=== PATIENT | male | born 1945 | race Caucasian/White ===

== ENCOUNTER → 2019-05-10 09:11 | Outpatient (CLI) | payer MEDICARE ==
--- NOTE | 2019-05-13 15:06 | EC ---
PATIENT:SANA KAYE DATE OF SERVICE: 05/10/19 SEX: M MEDICAL RECORD: [id number] DATE OF : 47 LOCATION:D.[facility] AGE OF PATIENT: 73 ADMISSION DATE: 05/10/19 REFERRING PHYSICIAN: INTERPRETING PHYSICIAN: RENE DAVID MD ECHOCARDIOGRAM REPORT ECHO CHARGES 4 ECHO COMPLETE Date: 05/10/19 CLINICAL DIAGNOSIS: CAD/ASSESS EF AND VALVES ECHOCARDIOGRAPHIC MEASUREMENTS (adult normal given) AC root (d.<3.7cm) 3.1 cm LV Septum d (<1.2 cm> 1.4 cm Valve Excursion 1.5 cm LV Septum (systole) 1.8 cm Left Atria (s.<4.0cm> 4.3 cm LVPW d(<1.2cm) 1.7 cm RV (d.<2.3cm) 4.5 cm LVPW (sytole) 1.8 cm LV diastole(<5.6CM) 5.3 cm MV E-F(>70mm/sec) cm LV systole 3.2 cm LVOT Diameter 2.0 cm MV exc.(>10mm) 2.3 cm Est.ejection fraction (50-75%) % DOPPLER: LVIT cm/sec A 64.0 cm/sec E 61.0 cm/sec LA cm/sec RVSP 33 mmHg LVOT 148 cm/sec AOP1/2T m/s Asc. Ao 162 cm/sec RVOT 68 cm/sec RA cm/sec PA 105 cm/sec AV Gradient Peak 10.52mmHg AV Mean 5.97 mmHg AV Area 2.8 cm MV Gradient Peak 2.48 mmHg MV Mean 0.82 mmHg MV Area cm COMMENTS: Tank Pumper Panelboard: 2 DANIA BRITTON Review Trainer: 3 Dr. Lang TAPE# PACS Pericardial Effusion N DATE OF SERVICE: Adequate 2D, color flow, spectral Doppler, and M-Mode. LVH is present. LV internal dimensions are normal. Wall motion is normal. EF is greater than or equal to 55%. Aortic valve is tricuspid. No evidence of stenosis on Doppler interrogation. Left atrium is mildly dilated at 4.3 cm. Mitral valve shows no prolapse. Trace MR. Right-sided chambers are grossly normal. Trace TR. TRANSINT:[id number] Voice Confirmation ID: [id number] DOCUMENT ID: [id number] ECHOCARDIOGRAM REPORT [id number] SANA KAYE,RENE Woodard MD at 1506 CC: [id number] DICTATION DATE: 05/10/19 1155 MARSH BUGGY OPERATOR: 05/10/19 1233 DEP CLI 05/10/19 [place] [id number] [place] [id number]
== END | disposition home or self-care (01) ==
LOC: D.HCCARDIO 09:11
PROVIDERS: ATTEND Internal Medicine Interventional Cardiology
DX: I25.10 Atherosclerotic heart disease of native coronary artery without angina pectoris (principal)

== ENCOUNTER → 2020-02-13 08:50 | Outpatient (CLI) | payer MEDICARE | END | disposition home or self-care (01) | LOC: D.HCCARDIO 08:50 → D.HCCECHO 10:30 | PROVIDERS: ATTEND Internal Medicine Cardiovascular Disease | DX: I25.119 Atherosclerotic heart disease of native coronary artery with unspecified angina pectoris (principal) ==

== ENCOUNTER → 2020-02-24 10:47 | Outpatient (CLI) | payer MEDICARE ==
[~2020-02-24] VITALS: Ht 177.8 cm; Wt 92.3 kg
--- NOTE | ~2020-02-24 | HEMODYNAMI ---
PATIENT:SANA KAYE MEDICAL RECORD: [id number] : 47 LOCATION:[facility] ADMISSION DATE: 02/24/20 Generatedon:02/24/202013:36 Patient name: SANA KAYE Patient #: [id number] SSN: [id number] : 1945 Date of study: 02/24/2020 Page: Of Hemodynamic Procedure Report Patient Data Patient Demographics Procedure consent was obtained First Name: SANA Gender: Male Last Name: VARGAS : 1945 [facility] Initial: K Age: 74 year(s) Patient #: [id number] Race: Unknown SSN: [id number] Additional ID: [id number] Contact details [address]: [address] [place] [address] State: [place] City: [place] Zip code: [address] Past Medical History Allergies: No known allergies Admission Admission Data Admission Date: 02/24/2020 Admission Time: 10:47 Lab Results Lab Result Date: 02/24/2020 Lab Result Time: 0:00 Biochemistry Name Units Result Min Max BUN mg/dl 21 --(----)-* 7 18 Creatinine mg/dl 1.2 --(---*)-- 0.6 1.3 eGFR ml/min 63 *-(----)-- 90 120 NONAFRICAN CBC Name Units Result Min Max Hematocrit % 48.1 --(--*-)-- 42 54 Hemoglobin g/dl 15.6 --(--*-)-- 13.5 17.5 Procedure Procedure Types Cath Procedure Diagnostic Procedure LHC LH w/Coronaries Sedation Charges Moderate Sedation up to 30 minutes PCI Procedure Coronary Stent Coronary Stent Initial PTCA PTCA Additional Hemochron ACT Test Procedure Description Procedure Date Procedure Date: 02/24/2020 Procedure Start Time: 13:10 Procedure End Time: 13:34 Procedure Staff Name Function Dudley Child MD Performing Physician Marylin Mcintyre RT Monitor Keli Delaney RT Scrub Nataly Sami RN Nurse Procedure Data Cath Procedure Fluoroscopy Diagnostic fluoroscopy Total fluoroscopy Time: 5 time: 5 min min Diagnostic fluoroscopy Total fluoroscopy dose: dose: 1592 mGy 1592 mGy Contrast Material Contrast Material Type Amount (ml) Isovue 300 105 Entry Location Entry Primary Successful Side Size Upsize Upsize Entry Closure Succes sful Closure Location (Fr) 1 (Fr) 2 (Fr) Remarks Device Remarks Femoral Right 5 Fr 6 Fr Exoseal artery Short Estimated blood loss: 10 ml Diagnostic catheters Device Type Used For End Catheter Placement MULTIPACK JL 4.0 5Fr Procedure catheter MULTIPACK 3DRC 5Fr Procedure catheter MULTIPACK Pigtail 5 Fr Ventriculography catheter Procedure Complications No complications Procedure Medications Medication Administration Route Dosage 0.9% NaCl I.V. 100 ml/hr Oxygen etCO2 Nasal cannula 2 l/min Lidocaine 2% added to field 20 Heparin Flush Bag added to field 2 bags (1000units/500ml NS) Versed I.V. 2 mg Fentanyl I.V. 50 mcg Fentanyl I.V. 50 mcg Heparin Bolus I.V. 5000 units Integrilin (Bolus I.V. 8.5 ml 2mg/ml) Integrilin (Bolus wasted 1.5 ml 2mg/ml) Plavix P.O. 600 mg Hemodynamics Rest HGB: 15.6 (g/dl) Heart Rate: 137 (bpm) Pressure Samples Time Site Value (mmHg) Purpose Heart Use Rate(bpm) 13:16 LV 96/8,10 Snapshot 62 13:16 AO 87/46(71) Pullback 64 Gradients Valve Time Site Site 2 Mean SEP/DFP Peak To Heart Use 1 (mmHg) (sec/min) Peak Rate (mmHg) (bpm) Aortic 13:16 LV AO 0 8 64 87/46(71) Calculations Valve P-P Mean Valve Index Valve Source Name Gradient Area Flow (cm2) Aortic 0 0 Snapshots Pre Cath Intra NCS Post Cath Vital Signs Time Heart Resp SPO2 etCO2 NIBP (mmHg) Rhythm Pain Sedation Rate (ipm) (%) (mmHg) Status Level (bpm) 12:56:47 59 12 97 31 130/70(100) NSR 0 (11) 10(A) , No pain 13:00:52 63 15 96 30.8 142/80(110) NSR 0 (11) 10(A) , No pain 13:05:06 54 18 97 33.8 127/71(102) SB 0 (11) 10(A) , No pain 13:09:18 44 16 98 36 108/58(85) SB 0 (11) 10(A) , No pain 13:13:24 44 16 97 37.6 113/55(87) SB 0 (11) 10(A) , No pain 13:17:30 45 15 97 36.8 112/66(89) SB 0 (11) 10(A) , No pain 13:21:35 61 23 96 36 118/59(94) SB 0 (11) 10(A) , No pain 13:25:43 56 23 97 34.5 134/64(101) SB 0 (11) 10(A) , No pain 13:29:55 57 17 96 34.5 136/70(106) SB 0 (11) 10(A) , No pain 13:34:05 69 13 97 33 131/75(107) SB 0 (11) 10(A) , No pain Medications Time Medication Route Dose Verified Delivered Reason Notes Effectiveness by by 12:59:31 0.9% NaCl I.V. 100 Dudley Nataly used for ml/hr [facility] Jonnie Gallardo procedure MD MADRID 12:59:38 Oxygen etCO2 2 Dudley Nataly used for Nasal l/min MateuszJonnie Gallardo procedure cannula MD MADRID 12:59:44 Lidocaine 2% added 20ml Dudley Sparrowory for local to vial [facility] anesthetic field MD CASTRO 12:59:48 Heparin Flush added 2 Dudley Dudley used for Bag to bags [facility] procedure (1000units/500ml field MD CASTRO NS) 13:02:07 Versed I.V. 2 mg Dudley Nataly for sedation [facility] Jonnie Gallardo MD, RN 13:02:12 Fentanyl I.V. 50 Dudley Nataly for sedation mcg [facility] Jonnie Gallardo MD RN 13:08:48 Fentanyl I.V. 50 Dudley Nataly for sedation mcg [facility] Jonnie Gallardo MD, RN 13:19:12 Heparin Bolus I.V. 5000 Dudley Nataly for verif ied units [place] Sami anticoagulation with Dr. CASTRO RN [place] 13:20:30 Integrilin I.V. 8.5 Dudley Nataly for (Bolus 2mg/ml) ml St Jonnie miles MD RN therapy 13:20:42 Integrilin wasted 1.5 Dudley Nataly for (Bolus 2mg/ml) ml [facility] Jonnie Gallardo antiplatelet RN therapy 13:20:48 Plavix P.O. 600 Dudley Inrgam for mg [facility] Jonnie Gallardo antiplatelet RN therapy Procedure Log Time Note 12:38:27 Informed consent obtained and on chart 12:39:06 Procedure Status Elective Heart Cath (OP). 12:39:07 Time tracking: Regular hours (M-F 7:00 - 5:00) 12:39:11 Plan of Care:Hemodynamics will remain stable., Cardiac rhythm will remain stable., Comfort level will be maintained., Respiratory function will remain adequate., Patient/ family verbilizes understanding of procedure., Procedure tolerated without complication., Recovers from procedure without complications.. 12:39:52 H&P Date Dictated: 02/07/2020 Within 30 days and on chart., H&P Addendum completed by physician on day of procedure. (MUST COMPLETE FOR ALL OUTPATIENTS). 12:40:00 Patient allergic to No known allergies 12:41:48 Lab Result : BUN 21 mg/dl 12:41:48 Lab Result : Creatinine 1.2 mg/dl 12:41:48 Lab Result : eGFR NONAFRICAN 63 ml/min 12:41:48 Lab Result : Hemoglobin 15.6 g/dl 12:41:48 Lab Result : Hematocrit 48.1 % 12:44:48 Marylin KANG(Nicholas) sent for patient. Start room use. 12:50:37 Patient received from Pre/Post Procedure Room to CCL 2 Alert and oriented. Tansferred to table in Supine position. 12:55:30 Warm blankets applied, and faith hugger turned on for patient comfort. 12:55:31 Correct patient and procedure confirmed by team. 12:55:31 ECG and BP/O2 sat monitors applied to patient. 12:55:32 Vital chart was started 12:55:33 Baseline sample Acquired. 12:55:36 Rhythm: sinus rhythm 12:55:38 Full Disclosure recording started 12:55:50 Pre-procedure instructions explained to patient. 12:55:53 Family unavailable. 12:55:56 Patient NPO since Midnight. 12:55:59 Is the patient allergic to Iodine/contrast media? No. 12:56:01 Was the patient premedicated? Yes 12:56:02 Is patient on blood thinner?No 12:56:03 Patient diabetic? Yes. 12:56:05 If diabetic: On Metformin? Yes 12:56:07 If on Metformin: Last Dose? 02/23/2020 12:56:13 Snore? Unknown 12:56:14 Sleep apnea? No 12:56:22 Patient pain scale 0/10 ?. 12:56:29 IV patent on arrival in left forearm with 0.9% NaCl at [facility]. 12:56:36 Lab results completed and on chart. 12:59:31 0.9% NaCl 100 ml/hr I.V. was administered by Nataly Gallardo RN; used for procedure; Verbal order read back and verified. 12:59:38 Oxygen 2 l/min etCO2 Nasal cannula was administered by Nataly Gallardo RN; used for procedure; Verbal order read back and verified. 12:59:44 Lidocaine 2% 20ml vial added to field was administered by Dudley Child MD; for local anesthetic; Verbal order read back and verified. 12:59:48 Heparin Flush Bag (1000units/500ml NS) 2 bags added to field was administered by Dudley Child MD; used for procedure; Verbal order read back and verified. 13:01:13 Right groin area was prepped with chlora-prep and draped in sterile fashion 13:01:14 Alarms reviewed by R. N. 13:01:14 Sharps counted by scrub and verified by R.N. 13:01:16 Physician arrived 13:01:17 --------ALL STOP TIME OUT------ 13:01:45 Final Timeout: patient, procedure, and site verified with staff and physician. All members of the team are in agreement. 13:01:47 Right groin site verified by team. 13:01:51 Fire Safety Assessment: A--An alcohol-based skin anteseptic being used preoperatively., C--Open oxygen or nitrous oxide is being used., D--An ESU, laser, or fiber-optic light is being used. 13:01:55 Physical assessment completed. ASA score P 3 - A patient with severe systemic disease as per Dudley Child MD. 13:02:04 2) 60-89 Mildly reduced kidney function, and other findings (as for stage 1) point to kidney disease. 13:02:07 Versed 2 mg I.V. was administered by Nataly Gallardo RN; for sedation; Verbal order read back and verified. 13:02:12 Fentanyl 50 mcg I.V. was administered by Nataly Gallardo RN; for sedation; Verbal order read back and verified. 13:02:51 Maximum allowable contrast dose (3.7 X eGFR X 0.75)175 ml. 13:02:55 Sedation plan: IV Moderate Sedation Medication:Versed, Fentanyl 13:03:06 Baseline sample Acquired. 13:04:35 Use device set Femoral Dx 13:04:36 ACIST Syringe (17037) opened to sterile field. 13:04:36 Bag Decanter (2002S) opened to sterile field. 13:04:37 Medline Cath Pack ([id number]) opened to sterile field. 13:04:38 ACIST Hand Control (69343) opened to sterile field. 13:04:39 ACIST Manifold (03687) opened to sterile field. 13:04:40 DIAGNOSTIC Multipack 5Fr catheter set (AH6074) opened to sterile field. 13:04:40 Tegaderm 4 x 4 (1626W) opened to sterile field. 13:04:42 SHEATH 5FR [place] (PJM167) opened to sterile field. 13:04:43 EMERALD Guide Wire (038-417) opened to sterile field. 13:08:48 Fentanyl 50 mcg I.V. was administered by Nataly Gallardo RN; for sedation; Verbal order read back and verified. 13:10:04 Procedure started. 13:10:14 Local anesthetic to right femoral artery with Lidocaine 2% by Dudley Child MD.INITIAL ACCESS ONLY 13:10:23 A 5 Fr sheath was inserted into the Right Femoral artery 13:10:54 J wire advanced. 13:11:09 A MULTIPACK JL 4.0 5Fr catheter was advanced over the wire and used for Procedure. 13:11:11 LCA angiography performed. 13:14:13 Catheter removed. 13:14:22 A MULTIPACK 3DRC 5Fr catheter was advanced over the wire and used for Procedure. 13:14:35 RCA angiography performed. 13:15:24 Catheter removed. 13:15:32 A MULTIPACK Pigtail 5 Fr catheter was advanced over the wire and used for Ventriculography. 13:15:35 Zero performed for pressure channel P1 13:16:12 SHEATH 6FR [place] (SWX897) opened to sterile field. 13:16:13 INFLATOR Merit BasixCompak (VE2505) opened to sterile field. 13:16:13 WHISPER 300cm guide wire ([id number]) opened to sterile field. 13:16:14 GUIDE 6FR XBLAD 3.5 SH catheter ([id number]) opened to sterile field. 13:16:50 EF : 55 % 13:16:51 Catheter removed. 13:16:54 Proceeding to intervention. 13:17:08 Sheath upsized to a 6 Fr Short. 13:17:45 6 Fr XBLAD3.5sh guide catheter was inserted over the wire 13:18:32 Whisper wire advanced. 13:19:12 Heparin Bolus 5000 units I.V. was administered by Nataly Gallardo RN; for anticoagulation; verified with Dr. Lang Verbal order read back and verified. 13:20:30 Integrilin (Bolus 2mg/ml) 8.5 ml I.V. was administered by Nataly Gallardo RN; for antiplatelet therapy; Verbal order read back and verified. 13:20:42 Integrilin (Bolus 2mg/ml) 1.5 ml wasted was administered by Nataly Gallardo RN; for antiplatelet therapy; Verbal order read back and verified. 13:20:42 Wire advanced across lesion. 13:20:48 Plavix 600 mg P.O. was administered by Nataly Gallardo RN; for antiplatelet therapy; Verbal order read back and verified. 13:24:03 Place stent Inflation Number: 1 A REINIER RX 3.0 x 15 stent ([id number]) was prepped and advanced across the 1st Diag . The stent was deployed at 14 ACACIA for 0:20 (min:sec) . 13:27:18 Wire redirected to ramus. 13:28:16 Guide catheter removed. 13:29:00 Inflate balloon Inflation number: 1 A EMERGE OTW 1.5 x 15 balloon ([id number]) was prepped and advanced across the Ramus 90, then inflated to 10 ACACIA for 0:11 (min:sec) 0. 13:29:24 EXOSEAL 6Fr (EX600) opened to sterile field. 13:29:36 Balloon removed over the wire. 13:29:38 Guide catheter removed. 13:29:47 Sheath removed intact; hemostasis achieved with Exoseal to the Right Femoral artery. 13:29:49 Procedure ended.(Physican Out) 13:30:12 Fluoroscopy time 05.00 minutes. 13:30:17 Fluoroscopy dose: 1592 mGy 13:30:17 Flurop Dose total: 1592 13:30:22 Dose Area Product 32485 mGy/cm. 13:30:27 Contrast amount:Isovue 300 105ml. 13:30:29 Maximum allowable dose exceeded? No. 13:31:06 Insertion/operative site no bleeding no hematoma. 13:31:11 Post-op/insertion site Right Femoral artery dressed using a 4 x 4 and Tegaderm. 13:31:13 Post Procedure Pulses reassessed and unchanged 13:31:18 Post-procedure physical assessment completed. ASA score P 3 - A patient with severe systemic disease as per Dudley Child MD. 13:31:22 Post procedure rhythm: unchanged. 13:31:26 Estimated blood loss: 10 ml 13:32:06 Post procedure instruction explained to patient.Patient verbalizes understanding. 13:33:15 Procedure type changed to Cath procedure, Diagnostic procedure, LHC, [facility] w/Coronaries, Sedation Charges, Moderate Sedation up to 30 minutes, PCI procedure, Coronary Stent, Coronary Stent Initial, PTCA, PTCA Additional, Hemochron ACT Test 13:33:16 Procedure and supply charges have been captured, reviewed, submitted and are correct. 13:33:39 Procedure Complication : No complications 13:33:41 Vital chart was stopped 13:33:46 [facility] Findings: MVD- PCI performed (see procedure note) 13:33:55 Report given to Pre/Post Procedure Room. 13:34:00 Patient transfered to Pre/Post Procedure Room with Stretcher. 13:34:02 Procedure ended. 13:34:02 Full Disclosure recording stopped 13:34:10 End room use (Document Last) 13:34:37 ACT drawn and resulted at 239 seconds. (normal therapeutic range 180-240 seconds). 13:34:43 End room use (Document Last) 13:35:45 End room use (Document Last) Intervention Summary Intervention Notes Time ActionType Lesion and Equipment Used Action# Pressure Duration Attributes 13:24:03 Place stent 1st Diag REINIER RX 3.0 x 1 14 00:20 15 stent ([id number]) 13:29:00 Inflate Ramus EMERGE OTW 1.5 1 10 00:11 balloon x 15 balloon ([id number]) Device Usage Item Name Manufacture Quantity Catalog Number Hospital Part Current Minimal Lot# / Charge Number Stock Stock Serial# Code ACIST Syringe Acist 1 50607 081780 685018 096962 20 (94042) Medical Systems Inc Bag Decanter Microtek 1 553702 55016 664913 5 () Medical Inc. Medline Cath Medline 1 [id number] 219454 77074 775842 5 Pack ([id number]) ACIST Hand Acist 1 59173 276789 093845 197282 5 Control Medical (87421) Systems Inc ACIST Manifold Acist 1 74796 751905 855049 447186 5 (68583) Medical Systems [facility] DIAGNOSTIC Cardinal 1 BD6416 639937 58403 099477 30 Multipack 5Fr Health catheter set ([id number]) Tegaderm 4 x 4 3M 1 1626W 635539 096611 259890 5 (1626W) SHEATH 5FR Terumo 1 OPQ691 941974 054945 728310 5 [place] (YYV294) EMERALD Guide Cardinal 1 502-455 377697 545949 412460 5 Wire (502-455) Health MULTIPACK JL Cardinal 1 512546 5 4.0 5Fr Health catheter MULTIPACK 3DRC Cardinal 1 657847 5 5Fr catheter Health MULTIPACK Cardinal 1 773357 5 Pigtail 5 Fr Health catheter SHEATH 6FR Terumo 1 OPK942 107289 401244 002037 40 [place] (FIK237) INFLATOR Merit Merit 1 XG3439 140618 740957 228513 15 [facility] Medical (XI9125) WHISPER 300cm [place] 1 [id number] 307312 776965 907578 5 guide wire Vascular ([id number]) GUIDE 6FR Cardinal 1 [id number] 492586 127470 707086 3 XBLAD 3.5 Health catheter ([id number]) REINIER RX 3.0 x Medtronic 1 [id number] 014236 0076105 350197 5 [id number] 15 stent ([id number]) EMERGE OTW 1.5 [place] 1 [id number] 991237 607060 742403 5 [id number] x 15 balloon Scientific ([id number]) EXOSEAL 6Fr Cardinal 1 EX600 653462 732710 298985 10 (EX600) Health Signature Audit [place] Stage Time Signature Unsigned Intra-Procedure 02/24/2020 Marylin Mcintyre 1:34:43 PM RT(R) Intra-Procedure 02/24/2020 Nataly Gallardo 1:35:45 PM RN Intra-Procedure 02/24/2020 uDdley Laura 1:36:04 PM Jonnie CASTRO Signatures Performing Physician : Signature : Dudley Child MD Date : Time : Monitor : Marylin Mcintyre Signature : RT Date : Time : Nurse : Nataly Gallardo RN Signature : Date : Time : [address] [address]
[~2020-02-24 10:47] MED LIST: BAYER CHEWABLE81 MG PO; CO Q-1030 MG PO; GLUCOPHAGE1000 MG PO; ISOSORBIDE MONO60 M1 PO; JARDIANCE10 MG PO; LIPITOR40 MG PO; NORVASC5 MG PO; PLAVIX75 MG PO; PROTONIX40 MG PO; TOPROL XL25 MG PO; TRAZODONE HCL150 MG PO; VITAMIN B-1100 M1 PO
[2020-02-24 11:19] VITALS: BP 132/70; Ht 177.8 cm; Wt 92.3 kg
[2020-02-24 11:32] LABS: BASOPHILS 0.5 % (0-2); EOSINOPHILS 1.5 % (0-7); HEMATOCRIT 48.1 % (42.0-54.0); HEMOGLOBIN 15.6 g/dL (13.5-17.5); IMMATURE GRANULOCYTES 0.3 % (0-5); LYMPHOCYTES 29.9 % (15-50); MCH 31.7 pg (26.0-34.0); MCHC 32.4 g/dL (31.0-37.0); MCV 97.8 fL (80.0-100.0); MEAN PLATELET VOLUME 10.2 fL (7.4-10.4); MONOCYTES 9.4 % (2-11); NEUTROPHILS 58.4 % (40-80); PLATELET COUNT 235 10x3/uL (130-400); RBC 4.92 10x6/uL (4.20-6.10); RDW 13.6 % (11.5-14.5); WBC 6.2 10x3/uL (4.8-10.8)
[2020-02-24 11:55] LABS: ANION GAP 14.1 mmol/L (8-16); CALCIUM 9.2 mg/dL (8.5-10.1); CHOL - HDL RATIO 3.7 ratio (2.3-4.9); CREATININE - SERUM 1.2 mg/dL (0.6-1.3); LDL-HDL RATIO 2.2 ratio (1.5-3.5); POTASSIUM - SERUM 4.1 mmol/L (3.5-5.1)
--- NOTE | 2020-02-24 13:45 | NUR ---
PT ARRIVED BY STRETCHER. PLACED ON MONITORS. ASSESSMENT COMPLETED. VSS AT THIS TIME. CALL LIGHT WITHIN REACH.
--- NOTE | 2020-02-24 14:00 | NUR ---
PT RESTING COMFORTABLY. VSS. RIGHT GROIN DRESSING C/D/I. NO S/S OF HEMATOMA NOTED. CALL LIGHT WITHIN REACH. TOLERATING SIPS OF WATER. DENIES NAUSEA/PAIN AT THIS TIME.
--- NOTE | 2020-02-24 14:30 | NUR ---
RIGHT GROIN DRESSING C/D/I. NO S/S OF HEMATOMA NOTED. CALL LIGHT WITHIN REACH. VSS. NO NEEDS AT THIS TIME.
--- NOTE | 2020-02-24 14:52 | NUR ---
RIGHT GROIN DRESSING C/D/I. NO S/S OF HEMATOMA MOTED. CALL LIGHT WITHIN REACH. PT C/O BACK STIFFENING (CHRONIC BACK PAIN). HE WAS LOG ROLLED AND A PILLOW PROPPED UNDER RIGHT SIDE FOR COMFORT. TOLERATED WELL. DENIES NAUSEA AT THIS TIME. TOLERATING SIPS OF WATER.
--- NOTE | 2020-02-24 15:20 | NUR ---
RIGHT GROIN DRESSING C/D/I. NO S/S OF HEMATOMA NOTED. CALL LIGHT WITHIN REACH. VSS.
--- NOTE | 2020-02-24 15:50 | NUR ---
PT'S CALLED. UPDATED HER ON PT'S STATUS AND DISCHARGE PLAN.
--- NOTE | 2020-02-24 16:32 | NUR ---
RIGHT GROIN DRESSING C/D/I. NO S/S OF HEMATOMA NOTED. CALL LIGHT WITHIN REACH. HEAD OF BED INC TO 30 DEGREES. TOLERATED WELL. VOIDED 550cc OF CLEAR YELLOW URINE IN URINAL. WIPED HANDS AND SET UP WITH SANDWICH TRAY AND DRINK. NO OTHER NEEDS AT THIS TIME.
--- NOTE | 2020-02-24 17:10 | NUR ---
RIGHT GROIN DRESSING C/D/I. NO S/S OF HEMATOMA NOTED. PIV D/C'D WITH CATH TIP INTACT. TOLERATED WELL. DISCUSSED DISCHARGE INSTRUCTIONS WITH PT. HE VOICED UNDERSTANDING. PT INSTRUCTED TO GET DRESSED. NO ASSISTANCE NEEDED. CALL LIGHT WITHIN REACH.
--- NOTE | 2020-02-25 09:33 | OP ---
PATIENT NAME: SANA KAYE MEDICAL RECORD: [id number] :47 LOCATION:D.CAT ADMISSION DATE: SURGEON: RENE DAVID MD DATE OF OPERATION: 02/24/2020 PROCEDURE: Left heart catheterization, selective coronary angiography, right femoral artery approach. CATHETERS: A 5-Ugandan sheath, 5/4 left and right Adelaida, 5/4 pig. The procedure was well tolerated and the patient was returned to santoyo. Sheath removed. ExoSeal device was placed. FINDINGS: Left ventriculography in 30-degree MANTILLA view: Normal wall motion, normal systolic function. CORONARY ANATOMY: LEFT MAIN: Left main is free of disease. LAD: An area seen is widely patent. There is a high diagonal, ramus and territory branch that has an 80% proximal stenosis. CIRCUMFLEX: High OM again was ramus had 90% stenosis. RIGHT CORONARY ARTERY: The right coronary artery was a dominant artery, gives rise to PDA, free of disease. IMPRESSION: Intervention to the high diagonal and high OM. DESCRIPTION OF PROCEDURE: A 5-Ugandan sheath was exchanged for XB LAD. The large high diagonal was then addressed with a 3-0, 50 mm [place] drug-eluting stent up to 14 atmospheres. Excellent resolution of 80% stenosis, no significant residual. The same wire was used a high OM and we will transverse a 90% stenosis without difficulty. This was ballooned with a 1.5 [place] balloon up to 12 atmospheres. Final angiography shows excellent resolution 90% stenosis to no significant residual. FINAL IMPRESSION: Successful stenting to a high diagonal 80% stenosis, no significant residual. Successful CHEMIST to a high OM with 90% stenosis, no significant residual. ZACH flow was 3 throughout the procedure. Heparin and Integrilin were used during the case. Sheath was closed with ExoSeal device. Plavix was loaded in the lab. TRANSINT:[id number] Voice Confirmation ID: [id number] DOCUMENT ID: [id number] RENE DAVID MD at 0933 CC: [id number] DICTATION DATE: 02/24/20 1343 MULTIPLE SCLEROSIS NURSE: 02/24/20 1857 DEP CLI 02/24/20 [facility] [address] [place] [address]
== END | disposition home or self-care (01) ==
LOC: D.CATH 10:47
PROVIDERS: ATTEND Internal Medicine Interventional Cardiology
DX: I25.119 Atherosclerotic heart disease of native coronary artery with unspecified angina pectoris (principal); I10 Essential (primary) hypertension; E78.5 Hyperlipidemia, unspecified; E11.9 Type 2 diabetes mellitus without complications; Z79.84 Long term (current) use of oral hypoglycemic drugs
CPT/HCPCS: 93458; 92921; C9600